=== PATIENT | male | born 1980 | race Caucasian/White ===

== ENCOUNTER 2024-07-21 01:33 | Emergency (ER) | payer SELFPAY ==
[2024-07-21] MEDS ORDERED: Thiamine HCl 200 MG/2 ML VIAL ONE (01:58)
[2024-07-21] MEDS ORDERED: Folic Acid 1 MG TAB ONE (01:58)
[2024-07-21 02:09] LABS: Amphetamine Not Detected (NotDetected); Barbiturates Screen Not Detected (NotDetected); Benzodiazepine Screen Not Detected (NotDetected); Cocaine Metabolite Screen Not Detected (NotDetected); Methadone Not Detected (NotDetected); Methamphetamine Not Detected (NotDetected); Opiate Screen Not Detected (NotDetected); Oxycodone Screen Not Detected (NotDetected); Phencyclidine (PCP) Not Detected (NotDetected); THC/Cannabinoid Screen Not Detected (NotDetected); Tricyclic Screen Not Detected (NotDetected)
[2024-07-21 02:28] LABS: #Basophils 0.08 10x3/uL (0.0-0.2); #Monocytes 0.73 10x3/uL (0.0-1.1); %Eosinophils 3.8 % (0.0-6.0); %Lymphocytes 40.7 % (18.0-47.0); %Monocytes 9.3 % (0.0-10.0); %Neutrophils 44.4 % (40.0-75.0); ALT (SGPT) 32 U/L (8-55); AST (SGOT) 22 U/L (5-34); Albumin 4.2 g/dL (3.5-5.0); Alkaline Phosphatase 63 U/L (40-110); Anion Gap 18 mmol/L (10-20); BUN (Urea Nitrogen) 9 mg/dL (8.9-20.6); Bilirubin, Total 0.3 mg/dL (0.2-1.2); Calc. Creatinine Clearance 0 mL/min (70-130); Carbon Dioxide 21 mmol/L (22-29); Chloride 108 mmol/L (98-107); Estimated GFR 101; Globulin 3.6 g/dL (2.4-3.5); Glucose 107 mg/dL (70-105); Hematocrit 49.7 % (38.8-50.0); Hemoglobin 17.1 g/dL (13.5-17.5); Mean Corpuscular HGB CONC 34.4 g/dL (32.0-36.0); Mean Platelet Volume 9.3 fL (7.4-10.4); Platelet Count 268 10x3/uL (150-450); Potassium 3.8 mmol/L (3.5-5.1); Protein, Total 7.8 g/dL (6.0-8.3); RBC Distribution Width 12.2 % (11.5-14.5); Red Blood Cell (RBC) Count 5.52 10x6/uL (4.32-5.72); Sodium 143 mmol/L (136-145); White Blood Cell (WBC) Count 7.9 10x3/uL (3.5-10.5)
[2024-07-21 02:29] LABS: Acetaminophen Less than 10 mcg/mL (Less than 10); Alcohol 240.6 mg/dL (Less than 10); Lipase 83 U/L (8-78); Salicylate Less than 8.0 mg/dL (Less than 8.0)
== END 2024-07-21 10:09 | disposition home or self-care (01) ==
LOC: CSHERS 01:33
DX: F10.129 Alcohol abuse with intoxication, unspecified (principal); F43.20 Adjustment disorder, unspecified; Y90.8 Blood alcohol level of 240 mg/100 ml or more
CPT/HCPCS: 36415; 80053; 80306; 80307; 83690; 84443; 85025; 96374; J3411